=== PATIENT | male | born 1975 | race Caucasian/White ===

== ENCOUNTER 2021-07-23 09:41 | Observation (INO) ==
[2021-07-23 12:48] LABS: Bilirubin,Urine Negative (Negative); Blood, Urine Negative (Negative); Glucose,Urine (UA) Negative (Negative); Hyaline Casts,Urine 6 /LPF (0-3); Ketones,Urine 5 mg/dL (Negative); Mucus,Urine Occasional /LPF (Occasional); Nitrite,Urine Negative (Negative); Protein,Urine Negative; RBC,Urine 3 /HPF (0-4); Squamous Epithelial Cell,Urine Occasional /HPF (0-10); Urine Appearance CLEAR (Clear); Urine Color Yellow (Yellow); Urine Specific Gravity 1.013 (1.001-1.035); Urine Urobilinogen < 2.0 EU/DL (0.2-1.0)
[2021-07-23 13:12] LABS: Basophils % 0.2 % (0.0-0.8); Eosinophils # 0.3 10*3/uL (0.0-0.87); Eosinophils % 3.2 % (0.00-10.9); Hematocrit 36.4 VOL% (42.0-52.0); Hemoglobin 12.1 GM/DL (14.0-18.0); Immature Granulocytes % 0.4 %; Immature Granulocytes Absolute 0.03 #; Lymphocytes # 1.4 10*3/uL (1.4-4.0); Lymphocytes % 15.9 % (21.2-54.2); Mean Corpuscular HGB Conc 33.2 GM/DL (32-36); Mean Corpuscular Volume 87.7 FL (87-102); Mean Platelet Volume 10.3 FL (9.6-12.0); Monocytes % 8.1 % (1.7-12.7); Neutrophils % 72.2 % (38.7-73.9); Platelet Count 266 T/CUMM (130-400); Red Blood Count 4.15 MC/CUMM (3.8-5.5); Red Cell Distribution Width 14.8 % (9.3-17.3); White Blood Count 8.5 T/CUMM (4-12)
[2021-07-23 13:25] LABS: Barbiturates Screen,Urine Negative (Negative); Benzodiazepines Screen,Urine Negative (Negative); Cannabinoid Screen,Urine Negative (Negative); Opiate Screen,Urine Negative (Negative); Phencyclidine Screen,Urine Negative (Negative)
[2021-07-23 13:35] LABS: Alanine Aminotransferase 21 U/L (16-61); Albumin 3.3 G/DL (3.4-5.0); Alkaline Phosphatase 68 U/L (45-117); Aspartate Amino Transferase 28 U/L (0-37); Bilirubin,Total < 0.39 MG/DL (0.20-1.00); Blood Urea Nitrogen 12 MG/DL (7-18); Calcium 8.5 MG/DL (8.5-10.1); Carbon Dioxide 29 MMOL/L (21-32); Estimated Glom Filtration Rate 153 ML/MIN; Glucose 109 MG/DL (74-106); Osmolality,Calculated 268.2 MOS/KG (273-304); Potassium 4.4 MMOL/L (3.5-5.1); Sodium 134 MMOL/L (136-145); Total Protein 7.1 G/DL (6.4-8.2)
[2021-07-23] MEDS ORDERED: SODIUM CHLORIDE 0.9% 1,000 ML IV STA (14:41)
[2021-07-23] MEDS ORDERED: MINERAL OIL ENEMA 133 ML BOTTLE RECTAL ONE (15:08)
[2021-07-23] MEDS ORDERED: MAGNESIUM CITRATE 300 ML BOTTLE PO STA (18:18)
[2021-07-23] MEDS ORDERED: DEXTROSE 50% 25 GM/50 ML VIAL IV PRN ×2 (18:58)
[2021-07-23] MEDS ORDERED: ACETAMINOPHEN 325 MG TABLET PO PRN (18:58)
[2021-07-23] MEDS ORDERED: GLUCAGON 1 MG VIAL IM PRN (18:58)
[2021-07-23] MEDS ORDERED: NICOTINE 21 MG/24 HR PATCH TRANSDERM PRN (18:58)
[2021-07-23] MEDS ORDERED: ONDANSETRON 4 MG/2 ML VIAL IV PRN (19:03)
[2021-07-24] MEDS: INSULIN REGULAR 100 UNIT/ML SUBCUT SCH ×5 (03:30→22:17)
[2021-07-24] MEDS: ENOXAPARIN 40 MG/0.4 ML SYRINGE SUBCUT SCH ×2 (03:30→22:17)
[2021-07-24] MEDS: PANTOPRAZOLE 40 MG TABLET PO SCH (11:22)
[2021-07-24] MEDS: BUPRENORPHINE SL TAB 2 MG TABLET SL SCH (22:14)
[2021-07-25] MEDS ORDERED: BUPRENORPHINE SL TAB 2 MG TABLET SL SCH (09:00)
[2021-07-25] MEDS: BUPRENORPHINE SL TAB 2 MG TABLET SL SCH (10:48)
[2021-07-25] MEDS: PANTOPRAZOLE 40 MG TABLET PO SCH (10:48)
[2021-07-25] MEDS: INSULIN REGULAR 100 UNIT/ML SUBCUT SCH ×4 (12:30→20:52)
[2021-07-25] MEDS: POLYETHYLENE GLYCOL POWDER 17 GM PACK PO SCH (12:31)
[2021-07-25] MEDS ORDERED: traZODone 50 MG TABLET PO PRN (14:13)
[2021-07-25] MEDS: ASPIRIN CHEW 81 MG TABLET PO SCH (15:01)
[2021-07-25] MEDS: amLODIPine 10 MG TABLET PO SCH (15:02)
[2021-07-25] MEDS: OXcarbazepine 300 MG TABLET PO SCH ×2 (15:02→20:51)
[2021-07-25] MEDS: CITALOPRAM 20 MG TABLET PO SCH (15:02)
[2021-07-25] MEDS: cloNIDine 0.1 MG TABLET PO SCH ×2 (15:03→20:51)
[2021-07-25] MEDS: hydrOXYzine HCL 25 MG TABLET PO SCH (15:03)
[2021-07-25] MEDS: chlorproMAZINE 25 MG TABLET PO SCH ×2 (15:04→20:52)
[2021-07-25] MEDS: DIVALPROEX ER 500 MG TABLET PO SCH (17:30)
[2021-07-25] MEDS: DOCUSATE SODIUM 100 MG CAPSULE PO SCH ×2 (17:30→20:51)
[2021-07-25] MEDS: ENOXAPARIN 40 MG/0.4 ML SYRINGE SUBCUT SCH (20:50)
[2021-07-25] MEDS: BENZTROPINE 1 MG TABLET PO SCH (20:51)
[2021-07-25] MEDS ORDERED: DIVALPROEX ER 250 MG TABLET PO SCH (21:00)
[2021-07-26] MEDS: chlorproMAZINE 25 MG TABLET PO SCH ×2 (08:40→15:00)
[2021-07-26] MEDS: BUPRENORPHINE SL TAB 2 MG TABLET SL SCH (08:40)
[2021-07-26] MEDS: ASPIRIN CHEW 81 MG TABLET PO SCH (08:40)
[2021-07-26] MEDS: hydrOXYzine HCL 25 MG TABLET PO SCH (08:40)
[2021-07-26] MEDS: PANTOPRAZOLE 40 MG TABLET PO SCH (08:41)
[2021-07-26] MEDS: DIVALPROEX ER 500 MG TABLET PO SCH (08:41)
[2021-07-26] MEDS: OXcarbazepine 300 MG TABLET PO SCH (08:41)
[2021-07-26] MEDS: CITALOPRAM 20 MG TABLET PO SCH (08:41)
[2021-07-26] MEDS: POLYETHYLENE GLYCOL POWDER 17 GM PACK PO SCH (08:41)
[2021-07-26] MEDS: BENZTROPINE 1 MG TABLET PO SCH (08:41)
[2021-07-26] MEDS: amLODIPine 10 MG TABLET PO SCH (08:41)
[2021-07-26] MEDS: cloNIDine 0.1 MG TABLET PO SCH ×2 (08:41→15:00)
[2021-07-26] MEDS: DOCUSATE SODIUM 100 MG CAPSULE PO SCH (08:41)
[2021-07-26] MEDS ORDERED: sitaGLIPtin 100 MG TABLET PO SCH (09:00)
[2021-07-26] MEDS ORDERED: lisinopriL 10 MG TABLET PO SCH (09:00)
[2021-07-26] MEDS: INSULIN REGULAR 100 UNIT/ML SUBCUT SCH ×2 (09:22→11:24)
[2021-07-26 15:53] VITALS: BP 145/84
== END 2021-07-26 15:58 ==
LOC: N.ED 09:41 → N.EDINP 09:41 → N.4E 20:17
PROVIDERS: ADMIT Internal Medicine; ATTEND Internal Medicine